=== PATIENT | male | born 1935 | race African-American/Black ===

== ENCOUNTER 2017-04-26 16:23 | Emergency (ER) | payer MEDICARE, OTHER ==
--- NOTE | 2017-04-26 17:24 | ER Document Report ---
ED General - General Chief Complaint: Palpitations Stated Complaint: LT SIDE NUMBNESS Time Seen by Provider: 04/26/17 17:08 Notes: 81-year-old male with cardiac history presents with 2 symptoms: Palpitations off and on since yesterday and tingling in his left face which started several hours ago today greater than 6. He denies numbness or tingling in his hands or feet, changes in gait vertigo or difficulty speaking. The tingling in the face is been better throughout the day. Not currently having palpitations. No chest pain chest pressure shortness of breath or nausea. TRAVEL OUTSIDE OF THE [place] IN LAST 30 DAYS: No - Related Data Allergies/Adverse Reactions: No Known Allergies Allergy (Unverified 04/26/17 16:35) Past Medical History - Social History Smoking Status: Former Smoker Chew tobacco use (# tins/day): No Frequency of alcohol use: Occasional Drug Abuse: None Family History: None Patient has suicidal ideation: No Patient has homicidal ideation: No Renal/ Medical History: Denies: Hx Peritoneal Dialysis Review of Systems - Review of Systems Notes: REVIEW OF SYSTEMS GEN: Denies fever, chills, weight loss ENT: Denies sore throat, nasal discharge, ear pain EYES: Denies blurry vision, eye pain, discharge CV: No chest pain positive palpitations RESP: Denies cough, shortness of breath, wheezing GI: Denies abdominal pain, nausea, vomiting, diarrhea MSK: Denies joint pain/swelling, edema, SKIN: Denies rash, skin lesions LYMPH: Denies swollen glands/lymph nodes NEURO: Denies headache, focal weakness. Left facial tingling. PSYCH: Denies depression, suicidal or homicidal ideation PHYSICAL EXAMINATION General: No acute distress, well-nourished Head: Atraumatic, normocephalic ENT: Mouth normal, oropharynx moist, no exudates or tonsillar enlargement Eyes: Conjunctiva normal, pupils equal, lids normal Neck: No JVD, supple, no guarding CVS: Normal rate, regular rhythm, no murmurs Resp: No resp distress, equal and normal breath sounds bilaterally GI: Nondistended, soft, no tenderness to palpation, no rebound or guarding Ext: No deformities, no edema, normal range of motion in upper and lower ext Back: No CVA or midline TTP Skin: No rash, warm Lymphatic: No lymphadeopathy noted Neuro: Awake, alert. Face symmetric. GCS 15. Cranial nerves II through XII are intact except for some slightly decreased sensation on the left face to palpation. 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 Speech is fluent. Physical Exam - Vital signs Vitals: Resp Pulse Ox 13 98 04/26/17 17:15 04/26/17 17:15 Course - Re-evaluation Re-evalutation: 04/26/17 19:14 Patient presents with greater than 6 hours of isolated face tingling reproducible on exam. Out of the window for TPA. Stroke score of 1 rate score of 0. This is likely either small vessel or related to the patient's ongoing palpitations. His EKG is normal no signs of A. fib or acute infarction. Differential also includes stroke and TIA. CT was done and is negative. Given aspirin. Reassessed with no change in symptoms. Labs are pending. Spoke with [facility] transfer center, and neurologist Dr. Richard who agrees with no TPA but transfer for ongoing stroke workup. 04/26/17 19:43 Remains normal on monitor. EKG nonischemic with no arrhythmia. CT negative. Has had his aspirin. Stable for transfer. - Vital Signs Vital signs: Temp Pulse Resp BP Pulse Ox 97.1 F 19 164/90 H 98 04/26/17 19:31 04/26/17 19:31 04/26/17 19:31 04/26/17 19:31 - Laboratory Result Diagrams: 04/26/17 19:02 04/26/17 19:02 Laboratory results interpreted by me: 04/26/17 19:02 RBC 4.25 L Hgb 12.9 L RDW 14.3 H Plt Count 108 L - Diagnostic Test Radiology reviewed: Image reviewed, Reports reviewed - EKG Interpretation by Me EKG shows normal: Sinus rhythm Rate: Normal When compared to previous EKG there are: No significant change Critical Care Note - Critical Care Note Total time excluding time spent on procedures (mins): 31 Comments: The above patient is critically ill. Not including procedures, but including direct re-evaluations, speaking with patient and/or consultants, interpreting results, and documenting, I spent the total amount of minute listed listed above on critical care time
--- NOTE | 2017-04-26 18:15 | RADIOLOGY REPORT (SQ) ---
EXAM DESCRIPTION: CT HEAD WITHOUT COMPLETED DATE/TIME: 04/26/2017 5:58 pm REASON FOR STUDY: L facial nbness COMPARISON: None. TECHNIQUE: Axial images acquired through the brain without intravenous contrast. Images reviewed wi th bone, brain and subdural windows. Images stored on PACS. All CT scanners at this facility use dose modulation, iterative reconstruction, and/or weight based d osing when appropriate to reduce radiation dose to as low as reasonably achievable (ALARA). [facility]: Dose Right [facility]: CareDose [facility]: Dose Right [facility]: Teradose 4D [facility]: [employer] RADIATION DOSE: CT Rad equipment meets quality standard of care and radiation dose reduction techniq ues were employed. CTDIvol: 64.6 mGy. DLP: 1163 mGy-cm. mGy. LIMITATIONS: None. FINDINGS: VENTRICLES: Normal size and contour. Cavum septum pellucidum. CEREBRUM: Mild cortical atrophy. No masses. No hemorrhage. No midline shift. No evidence for acut e infarction. Normal jaramillo/white matter differentiation. No areas of low density in the white matter. CEREBELLUM: No masses. No hemorrhage. No alteration of density. No evidence for acute infarction. EXTRAAXIAL SPACES: No fluid collections. No masses. ORBITS AND GLOBE: No intra- or extraconal masses. Normal contour of globe without masses. CALVARIUM: No fracture. PARANASAL SINUSES: No fluid or mucosal thickening. SOFT TISSUES: No mass or hematoma. OTHER: No other significant finding. IMPRESSION: Mild involutional changes of aging with no acute intracranial findings. EVIDENCE OF ACUTE STROKE: NO. COMMENT: Quality ID # [id number]: Final reports with documentation of one or more dose reduction techniques (e.g., Automated exposure control, adjustment of the mA and/or kV according to patient size, use of iterative reconstruction technique) TECHNICAL DOCUMENTATION: JOB ID: [id number] [employer]- All Rights Reserved Reading location - IP/workstation name: [email or web address]
[2017-04-26] MEDS ORDERED: ASPIRIN 325 MG TABLET, ENT COATED PO ONE (18:55)
[2017-04-26 19:17] LABS: ABSOLUTE EOSINOPHILS # (AUTO) 0.1 10^3/uL (0.0-0.6); ABSOLUTE LYMPHOCYTES (AUTO) 2.1 10^3/uL (0.5-4.7); ABSOLUTE MONOCYTES (AUTO) 0.8 10^3/uL (0.1-1.4); ABSOLUTE NEUT (AUTO) 4.9 10^3/uL (1.7-8.2); BASOPHILS % (AUTO) 0.4 % (0-2); EOSINOPHILS % (AUTO) 1.9 % (0-6); HEMOGLOBIN 12.9 g/dL (13.5-17.0); MEAN CORPUSCULAR HEMOGLOBIN 30.2 pg (27.0-33.4); MEAN CORPUSCULAR HGB CONC 32.9 g/dL (32.0-36.0); MEAN CORPUSCULAR VOLUME 92 fl (80-97); MONOCYTES % (AUTO) 10.5 % (3-13); PLATELET COUNT 108 10^3/uL (150-450); RED BLOOD COUNT 4.25 10^6/uL (4.35-5.55); RED CELL DISTRIBUTION WIDTH 14.3 % (11.5-14.0); SEGMENTED NEUTROPHILS % (AUTO) 61.2 % (42-78); TOTAL CELLS COUNTED % (AUTO) 100 %; WHITE BLOOD COUNT 7.9 10^3/uL (4.0-10.5)
[2017-04-26 19:44] LABS: ANION GAP 11 (5-19); BLOOD UREA NITROGEN 16 mg/dL (7-20); CALCIUM 9.3 mg/dL (8.4-10.2); CARBON DIOXIDE 24 mmol/L (22-30); CHLORIDE 107 mmol/L (98-107); GLUCOSE 80 mg/dL (75-110); POTASSIUM 4.3 mmol/L (3.6-5.0); SODIUM 142.2 mmol/L (137-145)
[2017-04-26 19:53] LABS: INTERNATIONAL RATION (INR) 0.97; PROTHROMBIN TIME 13.6 SEC (11.4-15.4)
[2017-04-26 21:05] VITALS: BP 161/82
--- NOTE | 2017-04-26 21:10 | EKG REPORT ---
SEVERITY:- ABNORMAL ECG - SINUS RHYTHM PROBABLE LVH WITH SECONDARY REPOL ABNRM : Confirmed by: Lolly Ann 26-Apr-2017 21:10:14
== END 2017-04-26 23:25 | disposition short-term general hospital (02) ==
LOC: ER 16:23
DX: G45.8 Other transient cerebral ischemic attacks and related syndromes (principal); R00.2 Palpitations; R20.0 Anesthesia of skin; Z87.891 Personal history of nicotine dependence; R40.2410 Glasgow coma scale score 13-15, unspecified time
CPT/HCPCS: 93005; 99291; 36415; 85025; 85610; 80048; 84484; 70450; 93010; A9270